=== PATIENT | male | born 1975 | race Caucasian/White ===

== ENCOUNTER 2021-09-29 13:10 | Outpatient (CLI) | payer BC ==
[2021-09-30 00:10] LABS: SARS-CoV-2 PCR by NAA Not Detected (NotDetected)
== END 2021-09-29 13:11 | disposition home or self-care (01) ==
LOC: LABBT 13:10
PROVIDERS: ATTEND Internal Medicine Cardiovascular Disease
DX: Z20.822 Contact with and (suspected) exposure to COVID-19 (principal)
CPT/HCPCS: U0003; U0005

== ENCOUNTER 2021-10-02 09:49 | Day surgery (SDC) | payer BC ==
[2021-09-30 15:26] VITALS: BMI 38.3
[2021-10-02] MEDS ORDERED: PROPOFOL 20 ML ONE (11:55)
== END 2021-10-02 13:23 | disposition home or self-care (01) ==
LOC: SDC 09:49
PROVIDERS: ATTEND Internal Medicine Cardiovascular Disease
PROC: 5A2204Z Restoration of Cardiac Rhythm, Single (ICD-10-PCS; principal; 2021-10-02)
DX: I48.0 Paroxysmal atrial fibrillation (principal); I11.9 Hypertensive heart disease without heart failure; K76.0 Fatty (change of) liver, not elsewhere classified; G47.33 Obstructive sleep apnea (adult) (pediatric); Z79.01 Long term (current) use of anticoagulants; Z79.82 Long term (current) use of aspirin; Z79.84 Long term (current) use of oral hypoglycemic drugs; Z79.899 Other long term (current) drug therapy
CPT/HCPCS: 92960; 93005; 93010; J2704

== ENCOUNTER 2022-02-03 09:41 | Outpatient (CLI) | payer BC ==
[2022-02-03 13:38] LABS: Anion Gap 17 mmol/L (10-20); BUN (Urea Nitrogen) 22 mg/dL (8.9-20.6); Calc. Creatinine Clearance 0 mL/min (70-130); Calcium 9.4 mg/dL (7.8-10.44); Carbon Dioxide 25 mmol/L (22-29); Chloride 99 mmol/L (98-107); Estimated GFR 107; Glucose 307 mg/dL (70-105); Hemoglobin 15.5 g/dL (13.5-17.5); Mean Corpuscular HGB CONC 34.3 g/dL (32.0-36.0); Mean Corpuscular Hemoglobin 32.9 pg (27.0-33.0); Mean Platelet Volume 10.2 fl (7.4-10.4); Platelet Count 137 10x3/uL (150-450); Potassium 4.8 mmol/L (3.5-5.1); RBC Distribution Width 14.6 % (11.5-14.5); Red Blood Cell (RBC) Count 4.71 10x6/uL (4.32-5.72); Sodium 136 mmol/L (136-145)
[2022-02-03 13:42] LABS: Prothrombin Time 11.2 sec (9.5-12.1)
== END 2022-02-03 09:42 | disposition home or self-care (01) ==
LOC: LABBT 09:41
PROVIDERS: ATTEND Internal Medicine Cardiovascular Disease
DX: Z01.812 Encounter for preprocedural laboratory examination (principal); Z20.822 Contact with and (suspected) exposure to COVID-19
CPT/HCPCS: 80048; 85027; 85610; 87811

== ENCOUNTER 2022-02-05 07:05 | Day surgery (SDC) | payer BC ==
[2022-02-03 14:06] VITALS: BMI 38.6
[2022-02-05] MEDS ORDERED: Heparin 25,000 units/D5W 500 ML ONE (08:18)
[2022-02-05] MEDS ORDERED: Protamine Sulfate 50 MG/5 ML VIAL ONE (08:18)
[2022-02-05] MEDS ORDERED: Heparin 10,000 UNITS/ 10 ML VIAL ONE (08:18)
[2022-02-05] MEDS ORDERED: Fentanyl 100 MCG/2 ML VIAL ONE ×2 (08:50→13:46)
[2022-02-05] MEDS ORDERED: Midazolam HCl 2 mg/2 ml Vial ONE (08:51)
[2022-02-05] MEDS ORDERED: Phenylephrine 10 MG/ML VIAL ONE (09:42)
[2022-02-05] MEDS ORDERED: PROPOFOL 200 MG/20 ML VIAL ONE (09:42)
[2022-02-05] MEDS ORDERED: Ondansetron PF 4 MG/2 ML Vial ONE (09:42)
[2022-02-05] MEDS ORDERED: Rocuronium Bromide 10 MG/ML (10ML VIAL) ONE (09:42)
== END 2022-02-05 17:56 | disposition home or self-care (01) ==
LOC: SDC 07:05
PROVIDERS: ATTEND Internal Medicine Cardiovascular Disease
DX: I48.19 Other persistent atrial fibrillation (principal); I10 Essential (primary) hypertension; G47.33 Obstructive sleep apnea (adult) (pediatric); Z79.01 Long term (current) use of anticoagulants; Z79.82 Long term (current) use of aspirin; Z79.84 Long term (current) use of oral hypoglycemic drugs; Z79.899 Other long term (current) drug therapy; Z88.0 Allergy status to penicillin
CPT/HCPCS: 85347; 93005; 93312; 93655; 93656; 93657; 93662; J1644; J2250; J2370; J2405; J2704; J2720; J3010

== ENCOUNTER → 2022-07-16 | Day surgery (SDC) | payer BC ==
[2022-07-14 13:52] VITALS: BMI 40.0
[~2022-07-16] MED LIST: Propofol 1,000 MG/100 ML VIAL IV ONE
== END | disposition home or self-care (01) ==
LOC: SDC 05:56
PROVIDERS: ATTEND Internal Medicine Cardiovascular Disease
PROC: 5A2204Z Restoration of Cardiac Rhythm, Single (ICD-10-PCS; principal; 2022-07-16)
DX: I48.19 Other persistent atrial fibrillation (principal); I47.1 Supraventricular tachycardia; I10 Essential (primary) hypertension; G47.33 Obstructive sleep apnea (adult) (pediatric); Z79.82 Long term (current) use of aspirin; Z79.84 Long term (current) use of oral hypoglycemic drugs; Z79.899 Other long term (current) drug therapy; Z88.0 Allergy status to penicillin
CPT/HCPCS: 92960; 93005; 93010; J2704

== ENCOUNTER → 2023-05-06 | Day surgery (SDC) | payer BC ==
[2023-05-05 12:24] VITALS: BMI 39.3
[~2023-05-06] MED LIST changes: +PROPOFOL 200 MG/20 ML VIAL ONE; -Propofol 1,000 MG/100 ML VIAL IV ONE
[2023-05-06 06:45] LABS: #Eosinphils 0.1 thou/uL (0.0-0.7); #Monocytes 0.5 thou/uL (0.11-0.59); #Neutrophils 3.7 thou/uL (1.40-6.50); %Basophils 0.5 % (0.0-1.0); %Eosinophils 1.1 % (0.0-10.0); %Lymphocytes 23.6 % (21.0-51.0); %Monocytes 8.7 % (0.0-10.0); %Neutrophils 65.9 % (42.0-75.0); Hematocrit 37.8 % (42.0-52.0); Hemoglobin 13.4 g/dL (14.0-18.0); Mean Corpuscular HGB CONC 35.4 g/dL (32.0-36.0); Mean Corpuscular Hemoglobin 33.3 pg (27.0-31.0); Mean Platelet Volume 9.9 fL (7.4-10.4); Platelet Count 166 10x3/uL (130-400); RBC Distribution Width 15.9 % (11.5-14.5); Red Blood Cell (RBC) Count 4.02 mill/uL (4.70-6.10); White Blood Cell (WBC) Count 5.6 10x3/uL (4.8-10.8)
[2023-05-06 07:03] LABS: INR-International Normal Ratio 1.2; Prothrombin Time 15.5 sec (12.0-14.7)
[2023-05-06 07:12] LABS: Anion Gap 14 mmol/L (10-20); BUN (Urea Nitrogen) 23 mg/dL (8.9-20.6); Calc. Creatinine Clearance 173 mL/min (70-130); Calcium 9.3 mg/dL (7.8-10.44); Carbon Dioxide 22 mmol/L (22-29); Chloride 102 mmol/L (98-107); Estimated GFR 97; Glucose 257 mg/dL (70-105); Potassium 3.9 mmol/L (3.5-5.1); Sodium 134 mmol/L (136-145)
== END ==
LOC: SDC 05:53
PROVIDERS: ATTEND Internal Medicine Cardiovascular Disease
PROC: 5A2204Z Restoration of Cardiac Rhythm, Single (ICD-10-PCS; principal; 2023-05-06)
DX: I48.19 Other persistent atrial fibrillation (principal); I10 Essential (primary) hypertension; G47.33 Obstructive sleep apnea (adult) (pediatric); F41.9 Anxiety disorder, unspecified; F32.A Depression, unspecified; R74.01 Elevation of levels of liver transaminase levels; Z79.01 Long term (current) use of anticoagulants; Z79.84 Long term (current) use of oral hypoglycemic drugs; Z79.899 Other long term (current) drug therapy; Z98.890 Other specified postprocedural states
CPT/HCPCS: 36415; 80048; 85025; 85610; 85730; 92960; 93005; 93010; J2704

== ENCOUNTER 2023-12-16 05:36 | Day surgery (SDC) | payer BC ==
[2023-12-13 08:27] VITALS: BMI 37.7
[2023-12-13 10:40] LABS: Hematocrit 40.9 % (38.8-50.0); Mean Corpuscular HGB CONC 36.7 g/dL (32.0-36.0); Mean Corpuscular Hemoglobin 33.4 pg (27.0-33.0); Mean Corpuscular Volume 91.1 fL (81.2-95.1); Mean Platelet Volume 10.5 fL (7.4-10.4); Platelet Count 166 10x3/uL (150-450); RBC Distribution Width 14.1 % (11.5-14.5); Red Blood Cell (RBC) Count 4.49 10x6/uL (4.32-5.72); White Blood Cell (WBC) Count 5.9 10x3/uL (3.5-10.5)
[2023-12-13 10:57] LABS: INR-International Normal Ratio 1.1; Prothrombin Time 11.7 sec (9.5-12.1)
[2023-12-13 11:04] LABS: Anion Gap 17 mmol/L (10-20); BUN (Urea Nitrogen) 13 mg/dL (8.9-20.6); Calc. Creatinine Clearance 210 mL/min (70-130); Calcium 9.5 mg/dL (7.8-10.44); Carbon Dioxide 20 mmol/L (22-29); Chloride 104 mmol/L (98-107); Estimated GFR 110; Glucose 195 mg/dL (70-105); Potassium 4.2 mmol/L (3.5-5.1); Sodium 137 mmol/L (136-145)
[2023-12-16] MEDS ORDERED: GLYCOPYRROLATE/PF 0.2 MG/ML VIAL ONE (07:03)
[2023-12-16] MEDS ORDERED: PROPOFOL 20 ML ONE (07:03)
[2023-12-16] MEDS ORDERED: Lidocaine 1% PF 5 ML VIAL ONE (07:04)
[2023-12-16] MEDS ORDERED: PHENYLEPHRINE-NS 100 MCG/ML 10 ML SYRINGE ONE (07:04)
== END 2023-12-16 09:14 | disposition home or self-care (01) ==
LOC: SDC 05:36
PROVIDERS: ATTEND Internal Medicine Cardiovascular Disease
PROC: 5A2204Z Restoration of Cardiac Rhythm, Single (ICD-10-PCS; principal; 2023-12-16)
DX: I48.19 Other persistent atrial fibrillation (principal); Z88.0 Allergy status to penicillin
CPT/HCPCS: 80048; 85027; 85610; 92960; 93005; 93010; J2704; J3490